=== PATIENT | male | born 1980 | race Asian ===

== ENCOUNTER 2022-10-20 23:37 | Emergency (ER) | payer OTHER ==
[~2022-10-20] VITALS: Ht 160 cm; Wt 62.1 kg
[2022-10-20 23:40] VITALS: BP_SYST 124
--- NOTE | 2022-10-21 00:11 | NUR ---
Patient ambulated to ER bed 2 with a steady gait. RT at bedside.
[2022-10-21] MEDS ORDERED: IPRATROPIUM/ALBUTEROL SULFATE 3 ML AMPUL.NEB (DUONEB) INH ONE ×2 (00:15→01:00)
--- NOTE | 2022-10-21 00:17 | NUR ---
RAD AT BEDSIDE FOR IMAGING.
--- NOTE | 2022-10-21 00:19 | NUR ---
RT AT BEDSIDE FOR BREATHING TX.
--- NOTE | 2022-10-21 00:19 | NUR ---
MD MODI AT BEDSIDE EXAMINING PT.
[2022-10-21] MEDS ORDERED: predniSONE 20 MG TABLET PO ONE (00:30)
[2022-10-21] MEDS ORDERED: IPRATROPIUM/ALBUTEROL SULFATE 3 ML AMPUL.NEB (DUONEB) ONE (00:58)
[2022-10-21] MEDS ORDERED: ALBMDI INH (01:05)
[2022-10-21] MEDS ORDERED: PRED20TA PO (01:05)
--- NOTE | 2022-10-21 01:51 | NUR ---
Patient given written and verbal discharge instructions and verbalizes understanding. ER MD Nur discussed with patient the results and treatment provided. Patient in stable condition. ID arm band removed. Rx of Albuterol and Prednisone sent to preferred pharmacy. Patient educated on pain management and to follow up with PMD. Opportunity for questions provided and answered. Medication side effect fact sheet provided.
[2022-10-21 01:53] VITALS: BP_SYST 149
== END 2022-10-21 01:55 | disposition home or self-care (01) ==
LOC: SED 23:37
DX: J45.901 Unspecified asthma with (acute) exacerbation (principal); R05.9 Cough, unspecified; R06.02 Shortness of breath; Z79.899 Other long term (current) drug therapy; Z20.822 Contact with and (suspected) exposure to COVID-19
CPT/HCPCS: 99284; 87426; 36415; 71045; 94640; 94760; J7512

== ENCOUNTER 2023-04-30 00:15 | Emergency (ER) | payer OTHER ==
[~2023-04-30] VITALS: Ht 160 cm; Wt 65.8 kg
[~2023-04-30 00:15] MED LIST: ALBMDI INH; PRED20TA PO
[2023-04-30 00:23] VITALS: BP_SYST 132; PULSE 89; RESP 18; TEMP 98; O2SAT 98
[2023-04-30] MEDS ORDERED: predniSONE 20 MG TABLET PO ONE (00:30)
[2023-04-30] MEDS ORDERED: ALBUTEROL SULFATE 0.083% 2.5 MG/3 ML VIAL.NEB INH ONE (00:30)
[2023-04-30] MEDS ORDERED: IPRATROPIUM BROM 0.5 MG/2.5 ML VIAL.NEB (ATROVENT) INH ONE (00:30)
[2023-04-30 01:32] LABS: COVID19 ANTIGEN SOFIA FIA NEGATIVE (NEGATIVE)
[2023-04-30 01:37] LABS: INFLUENZA TYPE A negative (NEGATIVE); INFLUENZA TYPE B NEGATIVE (NEGATIVE)
[2023-04-30] MEDS ORDERED: PRED20TA PO (01:52)
[2023-04-30] MEDS ORDERED: ALBMDI INH (01:52)
[2023-04-30 02:03] VITALS: BP_SYST 111; PULSE 82; RESP 22; TEMP 98; O2SAT 95
== END 2023-04-30 02:03 | disposition home or self-care (01) ==
LOC: SED 00:15
DX: J06.9 Acute upper respiratory infection, unspecified (principal); J45.901 Unspecified asthma with (acute) exacerbation; R06.02 Shortness of breath; J34.89 Other specified disorders of nose and nasal sinuses; Z79.899 Other long term (current) drug therapy; Z20.822 Contact with and (suspected) exposure to COVID-19
CPT/HCPCS: 36415; 71045; 94640; 99284; 87804 ×2; 87426; J7512; J7613

== ENCOUNTER 2023-08-24 18:13 | Emergency (ER) | payer OTHER ==
[~2023-08-24] VITALS: Ht 165.1 cm; Wt 63.5 kg
[2023-08-24 18:50] VITALS: BP_SYST 140; PULSE 95; RESP 18; TEMP 97.8; O2SAT 98
[2023-08-24] MEDS ORDERED: predniSONE 20 MG TABLET PO ONE (20:00)
[2023-08-24] MEDS ORDERED: methocarbamoL 500 MG TABLET PO ONE (20:00)
[2023-08-24] MEDS ORDERED: PRED20TA PO (20:43)
[2023-08-24] MEDS ORDERED: LIDO-54 TD (20:43)
[2023-08-24] MEDS ORDERED: ROBAC PO (20:43)
[2023-08-24 20:52] VITALS: BP_SYST 140; PULSE 95; RESP 18; TEMP 97.8; O2SAT 98
== END 2023-08-24 20:51 | disposition home or self-care (01) ==
LOC: SED 18:13
DX: R07.89 Other chest pain (principal); R05.9 Cough, unspecified; I10 Essential (primary) hypertension; J45.909 Unspecified asthma, uncomplicated; Z79.899 Other long term (current) drug therapy
CPT/HCPCS: 99284; 71045; 93005; J7512